=== PATIENT | female | born 1970 | race Caucasian/White ===

== ENCOUNTER 2022-03-12 04:31 | Emergency (ER) | payer MEDICAID ==
[~2022-03-12] VITALS: Ht 160 cm; Wt 65.0 kg
[2022-03-12 10:14] LABS: BASOPHILS % (AUTO) 0.4 % (0-1); EOSINOPHILS # (AUTO) 0.1 X10'3 (0-0.9); EOSINOPHILS % (AUTO) 0.9 % (0-6); HEMATOCRIT 37.2 % (35.0-45.0); HEMOGLOBIN 12.5 g/dl (12.0-16.0); LYMPHOCYTES # (AUTO) 1.8 X10'3 (1.1-4.8); MEAN CORPUSCULAR HEMOGLOBIN 31.6 PG (27.0-31.0); MEAN CORPUSCULAR HGB CONC 33.5 g/dL (33.0-36.5); MEAN CORPUSCULAR VOLUME 94.3 FL (78-98); MEAN PLATELET VOLUME 7.9 FL (7.4-10.4); MONOCYTES # (AUTO) 0.9 X10'3 (0-0.9); MONOCYTES % (AUTO) 11.3 % (2-12); NEUTROPHILS # (AUTO) 5.5 X10'3 (1.8-7.7); NEUTROPHILS % (AUTO) 65.4 % (42-75); PLATELET COUNT 214 X10'3 (140-440); RED BLOOD COUNT 3.95 X10'6 (4.20-5.60); RED CELL DISTRIBUTION WIDTH 14.9 % (11.5-14.5); WHITE BLOOD COUNT 8.4 X10'3 (4.5-11.0)
[2022-03-12] MEDS ORDERED: LORazepam 1 MG tablet PO ONE ×2 (11:00→15:10)
[2022-03-12] MEDS ORDERED: folic acid 1mg tablet PO STA (11:00)
[2022-03-12] MEDS ORDERED: thiamine 100mg tablet PO STA (11:00)
[2022-03-12] MEDS ORDERED: multivitamins, therapeutics tablet PO STA (11:00)
[2022-03-12 11:05] LABS: CLARITY,URINE CLEAR (Clear); COLOR,URINE YELLOW (Yellow); GLUCOSE, URINE NEGATIVE (Neg); KETONES,URINE NEGATIVE (Neg); LEUKOCYTE ESTERASE ,URINE NEGATIVE (Neg); NITRITES, URINE NEGATIVE (Neg); OCCULT BLOOD,URINE SMALL (Neg); PROTEIN,URINE NEGATIVE (Neg); UROBILINOGEN,URINE 0.2 E.U/dL (0.2-1.0)
[2022-03-12 11:06] LABS: UA COLLECTION TYPE CLN CATCH MIDSTREAM
[2022-03-12 11:17] LABS: BACTERIA,URINE NONE SEEN /HPF (Neg); RBC,URINE 0-2 /HPF (0-2); SQUAMOUS EPITHELIAL CELL,UR FEW /LPF (FEW); TRANSITIONAL EPI CELLS,URINE FEW /HPF; WBC,URINE 0-4 /HPF (0-4)
[2022-03-12 11:24] LABS: ALANINE AMINOTRANSFERASE 51 U/L (12-78); ALBUMIN 4.2 G/DL (3.4-5.0); ALBUMIN/GLOBULIN RATIO 1.4 (1.1-1.5); ALKALINE PHOSPHATASE 84 IU/L (46-116); ASPARTATE AMINO TRANSFERASE 48 U/L (10-37); BILIRUBIN,TOTAL 1.1 MG/DL (0.1-1.0); BLOOD UREA NITROGEN 46 MG/DL (7-18); BUN/CREATININE RATIO 36.8 (6.6-38.0); CALCIUM 8.3 MG/DL (8.5-10.1); CREATININE 1.25 MG/DL (0.40-0.90); GLUCOSE 125 MG/DL (70-104); TOTAL CARBON DIOXIDE 32.5 MMOL/L (24-32); TOTAL PROTEIN 7.2 G/DL (6.4-8.2); eGFR 45 ML/MIN
[2022-03-12 11:26] LABS: SODIUM 135 MMOL/L (135-145)
[2022-03-12 11:46] LABS: URINE AMPHETAMINE SCREEN NEGATIVE (Neg); URINE BARBITUATE SCREEN NEGATIVE (Neg); URINE BENZODIAZEPINES SCREEN NEGATIVE (Neg); URINE CANNABINOID SCREEN NEGATIVE (Neg); URINE COCAINE SCREEN NEGATIVE (Neg); URINE METHADONE SCREEN NEGATIVE (Neg); URINE OPIATE SCREEN NEGATIVE (Neg); URINE PHENCYCLIDINE SCREEN NEGATIVE (Neg)
[2022-03-12] MEDS ORDERED: POTASSIUM BICARB 20meq eff tab 20 MEQ TABLET.EFF PO STA (11:58)
[2022-03-12 11:59] LABS: POTASSIUM 2.7 MMOL/L (3.5-5.1)
[2022-03-12] MEDS ORDERED: magnesium 2GM in 50ml NS 50 ML IV ONE (12:00)
[2022-03-12] MEDS ORDERED: normal saline 1000ml 1,000 ML IV ONE ×2 (12:00)
[2022-03-12 13:32] LABS: ANION GAP 10 (8-16); CHLORIDE 93 MMOL/L (99-107); ETHANOL < 0.010 GM/DL (0.0-0.010)
[2022-03-12 15:07] VITALS: BP 117/78
[2022-03-12 15:07] LABS: ALBUMIN 3.3 G/DL (3.4-5.0); ANION GAP 3 (8-16); BLOOD UREA NITROGEN 33 MG/DL (7-18); BUN/CREATININE RATIO 39.8 (6.6-38.0); CALCIUM 6.9 MG/DL (8.5-10.1); CHLORIDE 101 MMOL/L (99-107); CREATININE 0.83 MG/DL (0.40-0.90); GLUCOSE 99 MG/DL (70-104); POTASSIUM 4.4 MMOL/L (3.5-5.1); SODIUM 136 MMOL/L (135-145); TOTAL CARBON DIOXIDE 32.1 MMOL/L (24-32); eGFR 73 ML/MIN
[2022-03-12] MEDS ORDERED: ONDA4TAB12 PO (15:10)
[2022-03-12] MEDS ORDERED: THIA50TA10 PO (15:10)
[2022-03-12] MEDS ORDERED: FOLI1TAB27 PO (15:10)
[2022-03-12] MEDS ORDERED: LORA-269 PO (15:10)
[2022-03-12] MEDS ORDERED: MULT-1085 PO (15:10)
--- NOTE | 2022-03-12 15:14 | NUR ---
Met with patient in regards to alcohol use and to see if patient was interested in resources for treatment options. Patient is interested in resources for outpatient treatment. I talked to patient about [facility], getting a sponsor and about medication to help with cravings. Patient has my card to call me with any questions.
[2022-03-13] MEDS ORDERED: BUPR-72 PO (19:37)
[2022-03-13] MEDS ORDERED: NALT50TA PO (19:37)
[2022-03-13] MEDS ORDERED: LISI10TA27 PO (19:37)
[2022-03-13] MEDS ORDERED: IBUP-1985 PO (19:37)
== END 2022-03-12 15:40 | disposition home or self-care (01) ==
LOC: ER 04:33
DX: F10.939 Alcohol use, unspecified with withdrawal, unspecified (principal); R11.2 Nausea with vomiting, unspecified; I10 Essential (primary) hypertension; R51.9 Headache, unspecified; F41.9 Anxiety disorder, unspecified; R44.0 Auditory hallucinations; R44.1 Visual hallucinations; Z79.899 Other long term (current) drug therapy; Y90.9 Presence of alcohol in blood, level not specified
CPT/HCPCS: 36415; 70450; 80048; 80053; 80305; 80320; 81001; 83735; 85025; 93005; 96365; 96366; 99285; J3475; J7030

== ENCOUNTER 2022-03-13 11:31 | Emergency (ER) | payer MEDICAID ==
[~2022-03-13] VITALS: Ht 165.1 cm; Wt 59.1 kg
[~2022-03-13 11:31] MED LIST: FOLI1TAB27 PO; LORA-269 PO; MULT-1085 PO; ONDA4TAB12 PO; THIA50TA10 PO
[2022-03-13] MEDS ORDERED: NALT50TA PO (19:37)
[2022-03-13] MEDS ORDERED: BUPR-72 PO (19:37)
[2022-03-13] MEDS ORDERED: IBUP-1985 PO (19:37)
[2022-03-13] MEDS ORDERED: LISI10TA27 PO (19:37)
[2022-03-13 20:12] LABS: BASOPHILS % (AUTO) 0.6 % (0-1); EOSINOPHILS # (AUTO) 0.1 X10'3 (0-0.9); EOSINOPHILS % (AUTO) 2.1 % (0-6); HEMATOCRIT 34.3 % (35.0-45.0); HEMOGLOBIN 11.4 g/dl (12.0-16.0); LYMPHOCYTES # (AUTO) 1.3 X10'3 (1.1-4.8); LYMPHOCYTES % (AUTO) 19.7 % (21-51); MEAN CORPUSCULAR HEMOGLOBIN 32.4 PG (27.0-31.0); MEAN CORPUSCULAR HGB CONC 33.4 g/dL (33.0-36.5); MEAN PLATELET VOLUME 8.1 FL (7.4-10.4); MONOCYTES # (AUTO) 0.9 X10'3 (0-0.9); MONOCYTES % (AUTO) 13.7 % (2-12); NEUTROPHILS # (AUTO) 4.1 X10'3 (1.8-7.7); NEUTROPHILS % (AUTO) 63.9 % (42-75); PLATELET COUNT 171 X10'3 (140-440); RED BLOOD COUNT 3.53 X10'6 (4.20-5.60); RED CELL DISTRIBUTION WIDTH 15.5 % (11.5-14.5); WHITE BLOOD COUNT 6.5 X10'3 (4.5-11.0)
[2022-03-13 20:24] LABS: ALANINE AMINOTRANSFERASE 53 U/L (12-78); ALBUMIN/GLOBULIN RATIO 1.4 (1.1-1.5); ALKALINE PHOSPHATASE 102 IU/L (46-116); ANION GAP 6 (8-16); ASPARTATE AMINO TRANSFERASE 41 U/L (10-37); BILIRUBIN,TOTAL 0.7 MG/DL (0.1-1.0); BLOOD UREA NITROGEN 15 MG/DL (7-18); BUN/CREATININE RATIO 24.6 (6.6-38.0); CALCIUM 8.3 MG/DL (8.5-10.1); CHLORIDE 101 MMOL/L (99-107); CREATININE 0.61 MG/DL (0.40-0.90); ETHANOL < 0.010 GM/DL (0.0-0.010); GLUCOSE 96 MG/DL (70-104); POTASSIUM 3.7 MMOL/L (3.5-5.1); SODIUM 137 MMOL/L (135-145); TOTAL CARBON DIOXIDE 30.4 MMOL/L (24-32); TOTAL PROTEIN 6.9 G/DL (6.4-8.2); eGFR > 90 ML/MIN
[2022-03-13] MEDS ORDERED: QUEtiapine 25mg tablet PO ONE (20:40)
[2022-03-13 21:19] LABS: URINE AMPHETAMINE SCREEN NEGATIVE (Neg); URINE BARBITUATE SCREEN NEGATIVE (Neg); URINE BENZODIAZEPINES SCREEN NEGATIVE (Neg); URINE CANNABINOID SCREEN NEGATIVE (Neg); URINE COCAINE SCREEN NEGATIVE (Neg); URINE METHADONE SCREEN NEGATIVE (Neg); URINE OPIATE SCREEN NEGATIVE (Neg); URINE PHENCYCLIDINE SCREEN NEGATIVE (Neg)
[2022-03-13] MEDS: ibuprofen 200mg tablet PO SCH (21:22)
[2022-03-13] MEDS: calcium carbonate 500mg chew tablet PO SCH (21:59)
[2022-03-14 05:06] VITALS: BP_DIAS 97
--- NOTE | 2022-03-14 07:00 | NUR ---
Received Pt in bed sleeping w/o distress at this time.
[2022-03-14] MEDS ORDERED: lisinopril 10 MG tablet PO SCH (08:00)
[2022-03-14] MEDS ORDERED: naltrexone 50mg tablet PO SCH (08:00)
[2022-03-14] MEDS ORDERED: buPROPion SR 150mg tablet PO SCH (08:00)
[2022-03-14] MEDS: ibuprofen 200mg tablet PO SCH (08:00)
[2022-03-14] MEDS: calcium carbonate 500mg chew tablet PO SCH (08:14)
[2022-03-14 08:16] VITALS: BP_SYST 145
--- NOTE | 2022-03-14 09:00 | NUR ---
Pt woke and used bathroom. Pt pleasant and cooperative and took AM meds w/o issue. Pt reported not needing motrin at this time. Pt reports etoh w/d as being part of her current mental issue, but is past withdrawals. Pt is currently being seen by [facility].
--- NOTE | 2022-03-14 11:30 | NUR ---
Pt in bed and resting. Pt seen by [facility] and will not be placed on a hold. Pt speaking clearly and denies SI. Pt reports having FU plan and has medication at home for mild anxiety. Pt will be calling her mother for a ride home.
== END 2022-03-14 14:24 | disposition home or self-care (01) ==
LOC: ER 11:32
DX: R44.0 Auditory hallucinations (principal); Z20.822 Contact with and (suspected) exposure to COVID-19; F10.20 Alcohol dependence, uncomplicated; F99 Mental disorder, not otherwise specified; I10 Essential (primary) hypertension; Y90.9 Presence of alcohol in blood, level not specified
CPT/HCPCS: 36415; 80053; 80305; 80320; 85025; 87811; 99285

== ENCOUNTER 2023-12-11 10:33 | Emergency (ER) | payer MEDICAID ==
[~2023-12-11] VITALS: Ht 160 cm; Wt 60.7 kg
[~2023-12-11 10:33] MED LIST changes: +BUPR-72 PO; +IBUP-1985 PO; +LISI10TA27 PO; +NALT50TA5 PO; +ONDA-243 PO; -ONDA4TAB12 PO
[2023-12-11 10:46] VITALS: TEMP 97.8
[2023-12-11 13:13] LABS: BASOPHILS % (AUTO) 0.4 % (0-1); EOSINOPHILS # (AUTO) 0.1 X10'3 (0-0.9); EOSINOPHILS % (AUTO) 1.2 % (0-6); HEMATOCRIT 41.5 % (35.0-45.0); LYMPHOCYTES # (AUTO) 1.1 X10'3 (1.1-4.8); LYMPHOCYTES % (AUTO) 16.8 % (21-51); MEAN CORPUSCULAR HEMOGLOBIN 31.2 PG (27.0-31.0); MEAN CORPUSCULAR HGB CONC 33.8 g/dL (33.0-36.5); MEAN CORPUSCULAR VOLUME 92.4 FL (78-98); MEAN PLATELET VOLUME 8.2 FL (7.4-10.4); MONOCYTES # (AUTO) 0.4 X10'3 (0-0.9); MONOCYTES % (AUTO) 6.6 % (2-12); NEUTROPHILS # (AUTO) 4.9 X10'3 (1.8-7.7); PLATELET COUNT 234 X10'3 (140-440); RED BLOOD COUNT 4.49 X10'6 (4.20-5.60); RED CELL DISTRIBUTION WIDTH 13.2 % (11.5-14.5); WHITE BLOOD COUNT 6.6 X10'3 (4.5-11.0)
[2023-12-11 13:17] LABS: ANION GAP 8 (8-16); BLOOD UREA NITROGEN 12 MG/DL (7-18); BUN/CREATININE RATIO 17.4 (10.0-20.0); CALCIUM 8.9 MG/DL (8.5-10.1); CHLORIDE 102 MMOL/L (99-107); CREATININE 0.69 MG/DL (0.40-0.90); GLUCOSE 108 MG/DL (70-104); MAGNESIUM 1.9 MG/DL (1.5-2.4); POTASSIUM 3.4 MMOL/L (3.5-5.1); SODIUM 138 MMOL/L (135-145); TOTAL CARBON DIOXIDE 27.7 MMOL/L (24-32); eCRCL 79 ML/MIN; eGFR 89 ML/MIN
[2023-12-11 13:18] LABS: ALBUMIN 4.1 G/DL (3.4-5.0); LIPASE 61 U/L (16-77)
[2023-12-11 13:20] LABS: ETHANOL < 10 MG/DL (<10)
[2023-12-11 13:22] LABS: APTT 27 SECONDS (22-32); INR 1.1 INR; PROTHROMBIN TIME 11.3 SECONDS (9.0-12.0)
[2023-12-11] MEDS: LORazepam 2 mg/ml vial IV ONE (13:45)
[2023-12-11] MEDS: normal saline 1000ML IV soln IVB ONE ×2 (13:46→14:05)
[2023-12-11] MEDS: chlordiazePOXIDE 25mg capsule PO ONE (13:46)
[2023-12-11] MEDS ORDERED: AMLO2.5T2 PO (14:13)
[2023-12-11] MEDS ORDERED: CHLO25CA10 PO (14:13)
[2023-12-11] MEDS: cloNIDine 0.1 MG/24 HOUR patch (7 day patch) TD ONE ×2 (14:27→16:39)
[2023-12-11] MEDS: metoprolol tartrate 50mg tablet PO ONE (14:29)
[2023-12-11 14:31] LABS: BILIRUBIN,DIRECT 0.3 MG/DL (0-0.3); BILIRUBIN,TOTAL 1.2 MG/DL (0.1-1.0); TOTAL PROTEIN 7.6 G/DL (6.4-8.2)
[2023-12-11 14:32] LABS: ALANINE AMINOTRANSFERASE 48 U/L (12-78); ALBUMIN/GLOBULIN RATIO 1.2 (1.1-1.5); ALKALINE PHOSPHATASE 107 IU/L (46-116); ASPARTATE AMINO TRANSFERASE 44 U/L (10-37)
[2023-12-11] MEDS: potassium Cl 20 mEq SR tablet PO ONE (14:50)
[2023-12-11 15:01] LABS: BILIRUBIN,URINE NEGATIVE (Neg); CLARITY,URINE CLEAR (Clear); COLOR,URINE YELLOW (Yellow); GLUCOSE, URINE NEGATIVE (Neg); KETONES,URINE NEGATIVE (Neg); LEUKOCYTE ESTERASE ,URINE NEGATIVE (Neg); NITRITES, URINE NEGATIVE (Neg); OCCULT BLOOD,URINE MODERATE (Neg); PROTEIN,URINE NEGATIVE (Neg); UROBILINOGEN,URINE 0.2 E.U/dL (0.2-1.0)
[2023-12-11 15:03] LABS: UA COLLECTION TYPE CLN CATCH MIDSTREAM
[2023-12-11 15:10] LABS: WBC,URINE 0-4 /HPF (0-4)
[2023-12-11 15:11] LABS: BACTERIA,URINE NONE SEEN /HPF (Neg); MUCUS STRANDS FEW /LPF (Neg); SQUAMOUS EPITHELIAL CELL,UR FEW /LPF (FEW)
[2023-12-11 15:47] LABS: URINE AMPHETAMINE SCREEN NEGATIVE (Neg); URINE BARBITUATE SCREEN NEGATIVE (Neg); URINE BENZODIAZEPINES SCREEN NEGATIVE (Neg); URINE CANNABINOID SCREEN NEGATIVE (Neg); URINE COCAINE SCREEN NEGATIVE (Neg); URINE METHADONE SCREEN NEGATIVE (Neg); URINE OPIATE SCREEN NEGATIVE (Neg); URINE PHENCYCLIDINE SCREEN NEGATIVE (Neg)
[2023-12-11 16:39] VITALS: BP 143/101; PULSE 82; RESP 16; O2SAT 97
== END 2023-12-11 16:42 | disposition home or self-care (01) ==
LOC: ER 10:34
DX: F10.139 Alcohol abuse with withdrawal, unspecified (principal); I10 Essential (primary) hypertension; F41.9 Anxiety disorder, unspecified; R79.1 Abnormal coagulation profile; Z79.899 Other long term (current) drug therapy; Z79.2 Long term (current) use of antibiotics; Y90.9 Presence of alcohol in blood, level not specified
CPT/HCPCS: 36415; 80048; 80076; 80305; 80320; 81001; 83690; 83735; 85025; 85610; 85730; 96361; 96374; 99284; J2060; J7030